=== PATIENT | male | born 1965 | race Caucasian/White ===

== ENCOUNTER 2017-04-01 13:01 | Emergency (ER) | payer OTHER ==
[2017-04-01 14:30] LABS: BASOPHIL % 0.8 % (0-2); RED CELL DISTRIBUTION WIDTH 13.9 % (11.5-14.5)
[2017-04-01 14:34] LABS: CALCIUM 8.8 mg/dL (8.5-10.1); CARBON DIOXIDE 27.6 mmol/L (21-32); CHLORIDE SERUM 106 mmol/L (98-107); GFR1 > 60 mL/min; GLUCOSE SERUM 120 mg/dL (74-106); POTASSIUM SERUM 4.1 mmol/L (3.5-5.1); SODIUM SERUM 139 mmol/L (136-145)
[2017-04-01 14:39] LABS: ALKALINE PHOSPHATASE 54 U/L (46-116); ALT/SGPT 35 U/L (16-63); AST/SGOT 24 U/L (15-37); BILIRUBIN TOTAL 0.4 mg/dL (0.20-1.00); TOTAL PROTEIN, SERUM 7.5 g/dL (6.4-8.2)
[2017-04-01 14:43] LABS: ALBUMIN 3.3 g/dL (3.4-5.0)
[2017-04-01 14:53] LABS: PLATELET COUNT 492 x10^3mcL (130-400)
[2017-04-01 17:49] VITALS: BP 118/77
== END 2017-04-01 17:49 | disposition home or self-care (01) ==
LOC: ED 13:01
PROVIDERS: Emergency Medicine
DX: R06.00 Dyspnea, unspecified (principal); M79.604 Pain in right leg; M79.605 Pain in left leg; Z86.718 Personal history of other venous thrombosis and embolism
CPT/HCPCS: 36415; 83880; Q0092; Q9967

== ENCOUNTER 2018-04-19 04:18 | Inpatient (IN) | payer OTHER ==
[~2018-04-19] VITALS: Ht 170.2 cm; Wt 94.5 kg
[2018-04-19 04:24] VITALS: Ht 170.2 cm; Wt 94.5 kg
[2018-04-19 05:25] LABS: BASOPHIL % 0.4 % (0-2); PLATELET COUNT 223 x10^3mcL (130-400); RED CELL DISTRIBUTION WIDTH 13.6 % (11.5-14.5)
[2018-04-19 05:34] LABS: CALCIUM 8.2 mg/dL (8.5-10.1); CARBON DIOXIDE 23.5 mmol/L (21-32); CREATININE SERUM 1.4 mg/dL (0.7-1.3); POTASSIUM SERUM 3.6 mmol/L (3.5-5.1)
[2018-04-19 05:39] LABS: ALBUMIN 3.5 g/dL (3.4-5.0); BILIRUBIN TOTAL 0.4 mg/dL (0.20-1.00); TOTAL PROTEIN, SERUM 7.8 g/dL (6.4-8.2)
[2018-04-19 07:25] LABS: UA SPECIFIC GRAVITY >=1.030 (1.005-1.035); microscopic required? YES; urine erythrocyte 3+ (NEGATIVE)
[2018-04-19 11:57] VITALS: BP 144/85
[2018-04-19 13:45] VITALS: BP 140/95
[2018-04-19 17:28] VITALS: BP 112/64
[2018-04-19 21:25] VITALS: BP 123/68
[2018-04-20 05:45] VITALS: BP 146/80
[2018-04-20 06:42] LABS: BASOPHIL % 0.3 % (0-2); PLATELET COUNT 193 x10^3mcL (130-400); RED CELL DISTRIBUTION WIDTH 13.7 % (11.5-14.5)
[2018-04-20 06:57] LABS: CALCIUM 7.6 mg/dL (8.5-10.1); CARBON DIOXIDE 24.7 mmol/L (21-32); CHLORIDE SERUM 109 mmol/L (98-107); CREATININE SERUM 1.3 mg/dL (0.7-1.3); GFR1 > 60 mL/min; GLUCOSE SERUM 103 mg/dL (74-106); MAGNESIUM 1.9 mg/dL (1.8-2.4); PHOSPHOROUS 2.8 mg/dL (2.5-4.9); SODIUM SERUM 140 mmol/L (136-145)
[2018-04-20 09:27] VITALS: BP 128/73
[2018-04-20] MEDS ORDERED: XARELTO20 M1 PO (10:44)
[2018-04-20] MEDS ORDERED: HYDROCHLOROTH12.5 M2 PO (10:53)
[2018-04-20] MEDS ORDERED: XARELTO10 M1 PO (12:16)
[2018-04-20 12:57] VITALS: BP 122/68
[2018-04-20 15:33] VITALS: BP 122/68
[2018-04-20 16:44] VITALS: BP 116/62
[2018-04-20] MEDS ORDERED: FLO4 PO (17:30)
[2018-04-20] MEDS ORDERED: APAP/HYDROCODON1 T13 PO (18:32)
== END 2018-04-20 18:52 | disposition home or self-care (01) | DRG 465 ==
LOC: ED 04:18 → DU 07:03
PROVIDERS: Emergency Medicine; Internal Medicine
DX: N13.2 Hydronephrosis with renal and ureteral calculous obstruction (principal); I10 Essential (primary) hypertension; M17.0 Bilateral primary osteoarthritis of knee; M77.9 Enthesopathy, unspecified; K42.9 Umbilical hernia without obstruction or gangrene; Z79.899 Other long term (current) drug therapy; Z82.49 Family history of ischemic heart disease and other diseases of the circulatory system; Z83.3 Family history of diabetes mellitus; Z79.01 Long term (current) use of anticoagulants; Z86.718 Personal history of other venous thrombosis and embolism; Z80.8 Family history of malignant neoplasm of other organs or systems; Z82.61 Family history of arthritis
CPT/HCPCS: J1885; J2270; J2405; J7030; Q0092

== ENCOUNTER 2018-05-08 17:18 | Emergency (ER) | payer OTHER ==
[~2018-05-08] VITALS: Ht 170.2 cm; Wt 94.1 kg
[~2018-05-08 17:18] MED LIST: APAP/HYDROCODON1 T13 PO; FLO4 PO; HYDROCHLOROTH12.5 M2 PO; XARELTO10 M1 PO; XARELTO20 M1 PO
[2018-05-08 17:21] VITALS: Ht 170.2 cm; Wt 94.1 kg
[2018-05-08 20:21] VITALS: BP 129/60
== END 2018-05-08 20:21 | disposition home or self-care (01) ==
LOC: ED 17:18
DX: S16.1XXA Strain of muscle, fascia and tendon at neck level, initial encounter (principal); S46.912A Strain of unspecified muscle, fascia and tendon at shoulder and upper arm level, left arm, initial encounter; I10 Essential (primary) hypertension; Z87.19 Personal history of other diseases of the digestive system; Z86.718 Personal history of other venous thrombosis and embolism; V43.52XA Car driver injured in collision with other type car in traffic accident, initial encounter; Y93.I9 Activity, other involving external motion; Y92.488 Other paved roadways as the place of occurrence of the external cause; Y99.8 Other external cause status
CPT/HCPCS: Q0162